=== PATIENT | female | born 1955 | race Caucasian/White ===

== ENCOUNTER 2025-03-07 06:10 | Day surgery (SDC) | payer MEDICARE ==
[~2025-03-07] VITALS: Ht 167.6 cm; Wt 63.4 kg
[~2025-03-07 06:10] MED LIST: CHLO125TA PO; DICY-61 PO; DILT180C70 PO; FAMO40TA3 PO; POTA-136 PO
[2025-03-07] MEDS: LIDOCAINE 3.5% 1 ML OPHTH TOPICAL GEL OU ONE (06:52)
[2025-03-07] MEDS ORDERED: MIDAZOLAM INJ 2 MG/2 ML VIAL As Ordered ONE (06:59)
[2025-03-07] MEDS: TOBRADEX OPHTH OINT 3.5 GM As Ordered ONE (07:58)
[2025-03-07] MEDS: LIDOCAINE 2% W/EPINEPHrine 20 ML VIAL **PRES FREE As Ordered ONE (07:58)
[2025-03-07 08:07] VITALS: BP 150/67; TEMP 97.2; O2SAT 98
== END 2025-03-07 08:20 | disposition home or self-care (01) ==
LOC: M SDC 06:10
PROVIDERS: ATTEND Ophthalmology
DX: H11.002 Unspecified pterygium of left eye (principal); I10 Essential (primary) hypertension; K58.9 Irritable bowel syndrome, unspecified; Z79.899 Other long term (current) drug therapy; Z90.49 Acquired absence of other specified parts of digestive tract
CPT/HCPCS: 65426; 88304; C1762; J2250; J3010; J7315